=== PATIENT | female | born 1960 | race Caucasian/White ===

== ENCOUNTER 2022-11-05 17:33 | Emergency (ER) | payer OTHER ==
[~2022-11-05] VITALS: Ht 172.7 cm; Wt 102.3 kg
--- NOTE | 2022-11-05 18:25 | NUR ---
sbar to minor assistant professor sculpture regarding pt s/s if we shd order any lab work while pt waiting in lobby ,as per assistant professor sculpture no need to order anything as her recommendation would be start with oral abx and return to er for worsening symp .
[2022-11-05] MEDS ORDERED: morphine 4 MG/ML inj SYRINge IV ONE (23:35)
[2022-11-05] MEDS ORDERED: ondansetron/PF 4mg/2ml inj IV ONE (23:35)
[2022-11-05] MEDS ORDERED: TETanus/Pertussis (Acell)/Diphther VAC/PF (Tdap-Adult) 0.5ml syringe IMVAC ONE (23:35)
[2022-11-05] MEDS ORDERED: ciprofloxacin 250mg tablet PO ONE (23:35)
[2022-11-05] MEDS ORDERED: ondansetron 4mg rapidly disintigrating tab PO ONE (23:35)
[2022-11-05 23:42] VITALS: TEMP 98.4
[2022-11-06] MEDS ORDERED: bacitracin 15gm ointment TP ONE
[2022-11-06] MEDS ORDERED: CIPR-202 PO (00:01)
[2022-11-06] MEDS ORDERED: aspirin 81mg tab.chew PO ONE (00:40)
[2022-11-06 01:04] LABS: BASOPHILS # (AUTO) 0.1 X10'3 (0-0.2); BASOPHILS % (AUTO) 0.6 % (0-1); EOSINOPHILS # (AUTO) 0.4 X10'3 (0-0.9); EOSINOPHILS % (AUTO) 2.8 % (0-6); HEMATOCRIT 44.4 % (35.0-45.0); HEMOGLOBIN 14.8 g/dl (12.0-16.0); LYMPHOCYTES # (AUTO) 5.5 X10'3 (1.1-4.8); LYMPHOCYTES % (AUTO) 35.2 % (21-51); MEAN CORPUSCULAR HEMOGLOBIN 29.2 PG (27.0-31.0); MEAN CORPUSCULAR HGB CONC 33.3 g/dL (33.0-36.5); MEAN CORPUSCULAR VOLUME 87.7 FL (78-98); MONOCYTES # (AUTO) 1.1 X10'3 (0-0.9); NEUTROPHILS # (AUTO) 8.5 X10'3 (1.8-7.7); NEUTROPHILS % (AUTO) 54.4 % (42-75); PLATELET COUNT 237 X10'3 (140-440); RED BLOOD COUNT 5.07 X10'6 (4.20-5.60); RED CELL DISTRIBUTION WIDTH 13.8 % (11.5-14.5); WHITE BLOOD COUNT 15.6 X10'3 (4.5-11.0)
[2022-11-06 01:16] LABS: ALANINE AMINOTRANSFERASE 33 U/L (12-78); ALBUMIN 3.8 G/DL (3.4-5.0); ALBUMIN/GLOBULIN RATIO 0.8 (1.1-1.5); ALKALINE PHOSPHATASE 68 IU/L (46-116); ANION GAP 12 (8-16); ASPARTATE AMINO TRANSFERASE 46 U/L (10-37); BILIRUBIN,TOTAL 0.5 MG/DL (0.1-1.0); BLOOD UREA NITROGEN 28 MG/DL (7-18); BUN/CREATININE RATIO 34.6 (10.0-20.0); CALCIUM 10.1 MG/DL (8.5-10.1); CHLORIDE 99 MMOL/L (99-107); CREATININE 0.81 MG/DL (0.40-0.90); GLUCOSE 146 MG/DL (70-104); POTASSIUM 3.2 MMOL/L (3.5-5.1); SODIUM 138 MMOL/L (135-145); TOTAL CARBON DIOXIDE 27.2 MMOL/L (24-32); TOTAL PROTEIN 8.4 G/DL (6.4-8.2); eGFR 72 ML/MIN
[2022-11-06 01:23] LABS: MAGNESIUM 2.1 MG/DL (1.5-2.4)
[2022-11-06] MEDS ORDERED: LIDOcaine Viscous 15ml cup MM ONE (01:35)
[2022-11-06] MEDS ORDERED: mag hydrox/Alum hydrox/simeth 30ml oral suspension PO ONE (01:35)
[2022-11-06] MEDS ORDERED: pantoprazole 40mg IV 80 MG in normal saline 100ml IV soln 100 ML IV ONE (01:35)
[2022-11-06] MEDS ORDERED: famotidine/PF 10 mg/ml inj IV ONE (01:35)
[2022-11-06] MEDS ORDERED: pantoprazole 40MG/NS 100ML BAG 100 ML IV ONE ×2 (01:45→02:00)
[2022-11-06] MEDS ORDERED: normal saline 1000ml 1,000 ML IV ONE (02:25)
[2022-11-06] MEDS ORDERED: CIPR750T14 PO (03:37)
[2022-11-06 03:53] VITALS: BP 113/61; PULSE 73; RESP 16; O2SAT 99
== END 2022-11-06 03:55 | disposition home or self-care (01) ==
LOC: ER 17:34
DX: M79.675 Pain in left toe(s) (principal)
CPT/HCPCS: 36415; 71045; 73660; 80053; 82948; 83735; 83880; 84484; 85025; 90471; 90715; 93005; 96361; 96374; 96375; 96376; 99285; A6222; C9113; J2270; J2405; J3490; J7030; A6449

== ENCOUNTER 2023-12-03 14:58 | Outpatient (CLI) | payer OTHER | END 2023-12-03 23:59 | disposition home or self-care (01) | LOC: CARD DIAG 14:58 | PROVIDERS: ATTEND Internal Medicine Cardiovascular Disease | DX: I08.8 Other rheumatic multiple valve diseases (principal); R01.1 Cardiac murmur, unspecified | CPT/HCPCS: 93306 ==